=== PATIENT | male | born 1980 | race African-American/Black ===

== ENCOUNTER 2024-03-05 07:19 | Emergency (ER) | payer SELFPAY ==
[~2024-03-05] VITALS: Ht 177.8 cm; Wt 80.0 kg
[2024-03-05 07:22] VITALS: O2SAT 98
[2024-03-05] MEDS ORDERED: IBUP-2028 PO (08:36)
[2024-03-05] MEDS: OXYCODONE HCL/ACETAMINOPHEN 5/325MG TABLET PO ONE (09:09)
[2024-03-05 09:15] VITALS: BP 138/89; PULSE 70; RESP 19; TEMP 98.7
== END 2024-03-05 09:15 | disposition home or self-care (01) ==
LOC: ER 07:19
DX: S42.002A Fracture of unspecified part of left clavicle, initial encounter for closed fracture (principal); X58.XXXA Exposure to other specified factors, initial encounter; Y93.89 Activity, other specified; Y92.89 Other specified places as the place of occurrence of the external cause; Y99.8 Other external cause status
CPT/HCPCS: 73000; 99283; A4565